=== PATIENT | female | born 1990 | race Caucasian/White ===

== ENCOUNTER 2016-09-26 20:42 | Inpatient (IN) | payer OTHER ==
[2016-09-26] MEDS ORDERED: CERVIDIL VG ONE (22:21)
[2016-09-26] MEDS ORDERED: STADOL IV PRN (22:21)
[2016-09-26] MEDS ORDERED: SUBLIMAZE IV PRN (22:22)
[2016-09-26] MEDS: LACTATED RINGERS 1,000 ML IV SCH (23:42)
[2016-09-26 23:53] LABS: Hematocrit 34.9 % (30.3-42.9); Hemoglobin 11.1 gm/dl (10.1-14.3); Mean Corpuscular HGB Conc 32 % (30-34); Mean Corpuscular Volume 76 fl (79-97); Platelet Count 166 K/mm3 (140-440); Red Blood Count 4.62 M/mm3 (3.65-5.03); Red Cell Distribution Width 18.4 % (13.2-15.2); White Blood Count 13.7 K/mm3 (4.5-11.0)
[2016-09-27 00:24] LABS: Mean Corpuscular Hemoglobin 24 pg (28-32)
[2016-09-27] MEDS: LACTATED RINGERS 1,000 ML IV SCH ×2 (04:48→17:23)
--- NOTE | 2016-09-27 11:11 | History and Physical Report ---
History of Present Illness Date of examination: 09/27/16 Date of admission: 09/26/16 20:42 Chief complaint: here to have my baby History of present illness: 26 YO now 40.6 weeks here for induction of labor. Had cervadil placed last night. care at [facility] since 13 weeks gestation. GBS Neg. Past History Past Medical History: no pertinent history Past Surgical History: no surgical history Family/Genetic History: none Social history: no significant social history - Obstetrical History Expected Date of Delivery: 09/21/16 Actual Gestation: 40 Week(s) 6 Day(s) : 1 Para: 0 Medications and Allergies Allergies Allergy/AdvReac Type Severity Reaction Status Date / Time No Known Allergies Allergy Unverified 09/26/16 21:50 Active Meds: Active Medications Butorphanol Tartrate (Stadol) 1 mg IV Q2H PRN PRN Reason: Labor Pain Fentanyl (Sublimaze) 100 mcg IV PRN PRN PRN Reason: Labor Pain Lactated Ringer's (Lactated Ringers) 1,000 mls @ 125 mls/hr IV DIRECT ANA LUISA Last Admin: 09/27/16 04:48 Dose: 125 mls/hr Review of Systems All systems: negative - Vital Signs Vital signs: Vital Signs Pulse Pulse Ox 95 H 99 09/26/16 21:50 09/26/16 21:50 Temp Pulse Resp BP Pulse Ox 97.8 F 81 18 111/62 97 09/27/16 07:53 09/27/16 10:26 09/27/16 07:53 09/27/16 10:26 09/27/16 09:00 - Physical Exam Breasts: Positive: deferred Cardiovascular: Regular rate Lungs: Positive: Clear to auscultation Abdomen: Positive: soft Genitourinary (Female): Positive: normal external genitalia Vulva: both: normal Vagina: Positive: normal moisture Uterus: Positive: enlarged Deep Tendon Reflex Grade: Normal +2 - Obstetrical FHR: category 1 Uterine Contraction Monitor Mode: External Cervical Dilatation: 1 Cervical Effacement Percentage: 80 station: -1 Uterine Contraction Pattern: Regular Uterine Contraction Intensity: Mild Results Result Diagrams: 09/26/16 22:24 Abnormal lab results 09/26/16 Range/Units 22:24 WBC 13.7 H (4.5-11.0) K/mm3 MCV 76 L (79-97) fl MCH 24 L (28-32) pg RDW 18.4 H (13.2-15.2) % All other labs normal. Assessment and Plan A:IUP @ 40.6 weeks P: Induction of labor
[2016-09-27] MEDS ORDERED: MINERAL OIL PO PRN (11:26)
[2016-09-27] MEDS ORDERED: BRETHINE SUB-Q PRN (11:26)
[2016-09-27] MEDS ORDERED: BRETHINE IVP PRN (11:26)
[2016-09-27] MEDS ORDERED: ePHEDrine SULFATE IV PRN (11:26)
[2016-09-27] MEDS ORDERED: PITOCin/NS 30 UNIT/500ML 30 UNITS/500 ML BAG IV SCH ×2 (12:00)
[2016-09-27] MEDS ORDERED: PITOCin/NS 20 UNIT/1000ML DRIP 20 UNITS/1,000 ML BAG IV SCH (12:00)
[2016-09-27 12:26] LABS: Hematocrit 36.2 % (30.3-42.9); Hemoglobin 11.6 gm/dl (10.1-14.3); Mean Corpuscular HGB Conc 32 % (30-34); Mean Corpuscular Volume 75 fl (79-97); Platelet Count 175 K/mm3 (140-440); Red Cell Distribution Width 18.6 % (13.2-15.2); White Blood Count 15.7 K/mm3 (4.5-11.0)
[2016-09-27 12:27] LABS: Mean Corpuscular Hemoglobin 24 pg (28-32)
[2016-09-27] MEDS ORDERED: CERVIDIL VG ONE (21:00)
[2016-09-28] MEDS: LACTATED RINGERS 1,000 ML IV SCH ×2 (10:30→14:05)
--- NOTE | 2016-09-28 10:46 | Event Note ---
Date: 09/28/16 S: Feeling contractions, cervadil fell out at 0730 O: VE 1.5/80/-1, cooks cervical ripening balloon placed. cervix softer, CAT I tracing A: Induction of labor Pitocin started Epidural when desired Expect
[2016-09-28] MEDS ORDERED: fentaNYL-BUPIV 2 MCG/ML-0.125% 200 MCG/100 ML BAG EPIDURAL ONE (14:41)
[2016-09-28] MEDS: ePHEDrine SULFATE IV PRN ×2 (15:13→16:11)
[2016-09-28] MEDS ORDERED: NARCAN 2 MG/2 ML IV PRN (15:14)
--- NOTE | 2016-09-28 15:14 | Anesthesia Consultation ---
Anesthesia Consult and Med Hx Date of service: 09/28/16 - Airway Anesthetic Teeth Evaluation: Good ROM Head & Neck: Adequate Mental/Hyoid Distance: Adequate Mallampati Class: Class II Intubation Access Assessment: Probably Good - Pulmonary Exam CTA: Yes - Cardiac Exam Cardiac Exam: RRR - Pre-Operative Health Status ASA Pre-Surgery Classification: ASA3 Proposed Anesthetic Plan: Epidural, Spinal - Pulmonary Hx Asthma: No COPD: No Hx Pneumonia: No - Cardiovascular System Hx Hypertension: No - Central Nervous System Hx Seizures: No Hx Psychiatric Problems: No - Endocrine Hx Renal Disease: No Hx End Stage Renal Disease: No Hx Hypothyroidism: No Hx Hyperthyroidism: No - Hematic Hx Anemia: No Hx Sickle Cell Disease: No - Other Systems Hx Alcohol Use: No Hx Obesity: Yes (BMI > 40) - Additional Comments Anesthesia Medical History Comments: +IUP
[2016-09-28] MEDS ORDERED: fentaNYL-BUPIV 2 MCG/ML-0.125% 200 MCG/100 ML BAG EPIDURAL SCH (16:00)
--- NOTE | 2016-09-28 16:32 | Event Note ---
Date: 09/28/16 O: /-1, arom clear fluid, small amt. IUPC and FSE placed. Pit at 6 cm, CAT I tracing A: Active labor @ 41.1 weeks P; Expect
[2016-09-28] MEDS ORDERED: NACL 0.9% 1000 ML 1,000 ML ONE (18:21)
[2016-09-28] MEDS ORDERED: NACL 0.9% 1000 ML 1,000 ML VG SCH (20:00)
--- NOTE | 2016-09-28 20:16 | Event Note ---
Date: 09/28/16 O: /-1, Pit at 14 mu, FHR Baseline increasing to 170's. CAT II tracing A: Active labor P: Dr. Naqvi updated regarding change in status. Will reevaluate at 2044
[2016-09-28] MEDS ORDERED: PEPCID IV SCH (20:26)
[2016-09-28] MEDS ORDERED: REGLAN IV SCH (20:26)
[2016-09-28] MEDS ORDERED: XYLOCAINE MPF 2% ONE ×2 (20:57→21:19)
[2016-09-28] MEDS ORDERED: PITOCin/NS 20 UNIT/1000ML DRIP 20 UNITS/1,000 ML BAG IV SCH ×2 (21:00→23:00)
[2016-09-28] MEDS ORDERED: LACTATED RINGERS 1,000 ML IV SCH (21:00)
[2016-09-28] MEDS ORDERED: BICITRA PO ONE (21:00)
[2016-09-28] MEDS ORDERED: ANCEF/STERILE WATER 2 GM/20 ML 2 GM/20 ML SYRINGE IV NR (21:00)
--- NOTE | 2016-09-28 21:01 | Anesthesia Day of Surgery ---
Anesthesia Day of Surgery - Day of Surgery Patient Examined: Yes Patient H&P Reviewed: Yes Patient is NPO: Yes
[2016-09-28] MEDS ORDERED: BENADRYL IV PRN (21:02)
[2016-09-28] MEDS ORDERED: MORPHINE IV PRN ×2 (21:02)
[2016-09-28] MEDS ORDERED: WATER FOR IRRIG STERILE IR ONE (21:16)
[2016-09-28] MEDS ORDERED: NACL 0.9% IR ONE (21:16)
[2016-09-28] MEDS ORDERED: ZOFRAN ONE (21:26)
[2016-09-28] MEDS ORDERED: ANCEF/STERILE WATER 2 GM/20 ML IV ONE (21:32)
[2016-09-28] MEDS ORDERED: MORPHINE ONE (21:37)
--- NOTE | 2016-09-28 22:11 | Operative Report ---
Operative Report Operative Report: Date of procedure: 09/28/2016 Pre-operative diagnosis: 1. Intrauterine at 41-0/7 weeks 2. Nonreassuring surveillance Post-operative diagnosis: Same Procedure name(s): Primary low transverse section Surgeon: Barak Naqvi MD Wheelabrator Operator: None Anesthesia: Epidural anesthesia by Dr. Byrne EBL: 700 mls Findings: A 3805 g male Apgars 8 at 1 minutes and 9 at 5 minutes; clear amniotic fluid. Normal uterus. Normal tubes and ovaries bilaterally. Procedure: After the patient was prepped and draped in usual sterile fashion, and after satisfactory level of epidural anesthesia was obtained, the skin knife was used to make a transverse skin incision. The incision was excised down to layer of the fascia, which was nicked in the midline and extended laterally using the Bovie cautery. The rectus muscles were dissected off the rectus fascia both superiorly and inferiorly. The rectus bellies in the midline, and the peritoneum was entered under direct visualization. The peritoneal incision was extended superiorly and inferiorly. A bladder flap was created and the bladder blade was then placed. The uterus was scored in a curvilinear linear fashion, entered in the midline revealing clear amniotic fluid. The infant's head was delivered onto the surgical field, and the oropharynx and nasopharynx were bulb suctioned. The rest of the infant's body was delivered, cord was doubly clamped and cut and the was handed to the waiting respiratory team. Cord blood was then obtained. The placenta was manually removed from the uterus, and the uterus removed from its normal anatomical position. After gentle uterine lavage, the incision was inspected and found to be without extensions. It was then closed in 2 layers using 0 Vicryl suture in a running interlocking fashion, the second layer imbricating the first. After good hemostasis was achieved, copious amounts or irrigation was performed, and the gutters were suctioned free of blood and blood clots. Tisseel sealant was sprayed across the uterine incision. The uterus was then returned to its normal anatomical position, and after excellent hemostasis assured, the peritoneum was reapproximated using 3-0 Vicryl suture in a running interlocking fashion, and then the rectus muscles were reapproximated using 3-0 Vicryl suture in a [id number] configuration. The fascia was then reapproximated using 0 Vicryl suture in running interlocking fashion. The subcutaneous layer was made hemostatic using Bovie cautery, the Tisseel sealant was sprayed across the fascial incision and the skin edges reapproximated using 4-0 Vicryl suture in a subcuticular fashion. Patient tolerated the procedure well was transported to recovery in stable condition.
[2016-09-28] MEDS ORDERED: PHENERGAN PR PRN (22:13)
[2016-09-28] MEDS ORDERED: SENOKOT PO PRN (22:13)
[2016-09-28] MEDS ORDERED: MYLICON PO PRN (22:13)
[2016-09-28] MEDS ORDERED: NARCAN 0.4 MG/1 ML IV PRN (22:13)
[2016-09-28] MEDS ORDERED: LANSINOH TP PRN (22:13)
[2016-09-28] MEDS ORDERED: ZOFRAN IV PRN (22:13)
[2016-09-28] MEDS ORDERED: NORCO 5/325 PO PRN (22:13)
[2016-09-28] MEDS ORDERED: MILK OF MAGNESIA PO PRN (22:13)
[2016-09-28] MEDS ORDERED: TYLENOL PO PRN (22:13)
[2016-09-28] MEDS ORDERED: TUCKS PAD TP PRN (22:13)
[2016-09-28] MEDS ORDERED: DEMEROL ONE (22:28)
[2016-09-28] MEDS: TORADOL IV PRN (22:42)
[2016-09-28] MEDS ORDERED: SODIUM CHLORIDE FLUSH SYRINGE 10 ML IV NR (23:00)
[2016-09-29] MEDS: D5LR 1,000 ML IV SCH ×2 (00:17→09:06)
[2016-09-29 00:59] LABS: Basophils % (Auto) 0.5 % (0.0-1.8); Eosinophils % (Auto) 0.3 % (0.0-4.3); Hematocrit 29.6 % (30.3-42.9); Hemoglobin 9.5 gm/dl (10.1-14.3); Mean Corpuscular HGB Conc 32 % (30-34); Mean Corpuscular Volume 76 fl (79-97); Platelet Count 146 K/mm3 (140-440); Red Blood Count 3.91 M/mm3 (3.65-5.03); Red Cell Distribution Width 18.8 % (13.2-15.2); White Blood Count 18.9 K/mm3 (4.5-11.0)
[2016-09-29 01:04] LABS: Mean Corpuscular Hemoglobin 24 pg (28-32)
[2016-09-29] MEDS: ANCEF/NS 1 GM/50 ML 1 GM/50 ML BAG IV SCH ×2 (02:53→12:10)
[2016-09-29] MEDS ORDERED: M-M-R II VACCINE SUB-Q ONE (06:00)
[2016-09-29] MEDS ORDERED: BOOSTRIX IM ONE (06:00)
--- NOTE | 2016-09-29 09:01 | Progress Note ---
Assessment and Plan O: WBC 18, temp 100.5 at 2300 hrs, FF @ U-2 A: POD #1 - stable P: Continue post op care HCTZ 50 mg pox 1 dose Subjective - Subjective Date of service: 09/29/16 Principal diagnosis: Primary Interval history: 26 YO now 40.6 weeks here for induction of labor. Had cervadil placed last night. care at [facility] since 13 weeks gestation. GBS Neg. Patient reports: appetite normal : doing well Objective - Vital Signs Latest vital signs: Vital Signs Temp Pulse Pulse Resp BP BP Pulse Ox 09/29/16 08:03 98.4 F 103 H 18 120/56 09/29/16 04:47 98.3 F 112 H 20 132/61 09/29/16 00:25 98.2 F 95 H 18 135/58 09/28/16 23:28 100.5 F H 09/28/16 23:20 108 H 14 122/69 94 09/28/16 23:15 106 H 14 116/83 93 09/28/16 23:10 104 H 18 124/70 94 09/28/16 23:05 104 H 17 117/76 94 09/28/16 23:00 100 H 18 140/79 95 09/28/16 22:55 106 H 21 140/79 96 09/28/16 22:50 104 H 17 126/80 94 09/28/16 22:45 91 H 17 131/71 94 09/28/16 22:42 19 09/28/16 22:40 99 H 14 144/79 96 09/28/16 22:35 104 H 17 146/81 97 09/28/16 22:30 102 H 26 H 145/92 97 09/28/16 22:25 101 H 19 128/82 99 09/28/16 22:21 98.4 F 09/28/16 22:20 100 H 20 132/65 99 09/28/16 22:19 103 H 19 98 09/28/16 20:42 113 H 143/66 09/28/16 19:47 95 H 98 09/28/16 19:42 91 H 98 09/28/16 19:41 90 122/57 09/28/16 19:37 93 H 99 09/28/16 19:32 89 98 07/16/17 19:27 102 H 98 0716/17 19:26 109 H 117/56 0716/17 19:22 95 H 98 0716/17 19:17 92 H 98 0716/17 19:12 102 H 98 0716/17 19:11 92 H 132/71 0716/17 19:10 99.5 F 15 0716/17 19:07 94 H 98 0716/17 19:02 110 H 98 0716/17 18:57 88 98 0716/17 18:56 88 137/74 0716/17 18:52 88 99 0716/17 18:47 89 98 0716/17 18:42 88 134/73 99 0716/17 18:37 87 98 0716/17 18:32 100 H 98 0716/17 18:27 93 H 99 0716/17 18:26 90 124/60 0716/17 18:22 88 99 0716/17 18:17 111 H 98 16/17 18:12 96 H 99 16/17 18:11 96 H 130/64 0716/17 18:07 91 H 98 0716/17 18:02 93 H 99 0716/17 17:57 105 H 123/57 99 0716/17 17:52 100 H 99 0716/17 17:47 101 H 99 0716/17 17:42 87 120/59 100 0716/17 17:37 87 98 0716/17 17:32 98 H 98 0716/17 17:27 90 113/63 98 0716/17 17:22 101 H 98 0716/17 17:17 86 100 0716/17 17:12 91 H 100 0716/17 17:11 96 H 135/70 0716/17 17:10 16 07/16/17 17:07 84 99 0716/17 17:02 94 H 99 0716/17 16:57 90 100 0716/17 16:56 94 H 140/66 0716/17 16:52 90 100 0716/17 16:47 101 H 100 0716/17 16:42 94 H 100 0716/17 16:41 88 131/65 0716/17 16:37 105 H 100 07/16/17 16:32 96 H 100 07/16/17 16:27 95 H 132/66 100 07/16/17 16:22 89 100 07/16/17 16:17 95 H 100 07/16/17 16:12 78 100 07/16/17 16:11 81 109/54 07/16/17 16:07 82 100 07/16/17 16:03 83 112/55 07/16/17 16:02 84 99 07/16/17 15:57 80 97 07/16/17 15:52 76 99 07/16/17 15:47 84 97 07/16/17 15:42 82 119/57 98 07/16/17 15:37 86 98 07/16/17 15:32 94 H 98 07/16/17 15:27 85 97 07/16/17 15:25 82 117/53 07/16/17 15:23 91 H 121/55 07/16/17 15:22 96 H 98 07/16/17 15:21 78 116/51 0716/17 15:19 79 84/48 0716/17 15:17 81 99 07/16/17 15:16 77 76/41 07/16/17 15:14 82 71/36 07/16/17 15:12 89 96 07/16/17 15:11 86 122/55 07/16/17 15:07 90 124/61 97 07/16/17 15:03 77 138/71 07/16/17 15:02 79 97 07/16/17 15:00 96 H 150/73 0716/17 14:57 101 H 145/69 98 07/16/17 14:52 82 96 07/16/17 14:48 103 H 123/59 0716/17 14:47 109 H 96 0716/17 14:31 80 98 07/16/17 14:28 79 94 07/16/17 14:26 81 97 07/16/17 14:22 84 94 07/16/17 14:21 81 97 07/16/17 14:16 79 97 07/16/17 14:11 80 97 07/16/17 14:09 96 H 94 07/16/17 14:06 85 97 07/16/17 14:01 101 H 96 16/17 13:56 91 H 96 /16/17 13:51 89 97 07/16/17 13:46 78 98 07/16/17 13:41 88 98 07/16/17 13:37 84 92 07/16/17 13:36 84 98 07/16/17 13:31 84 95 07/16/17 13:26 83 96 07/16/17 13:21 95 H 97 0716/17 13:20 91 H 93 0716/17 13:16 80 94 0716/17 13:14 90 93 0716/17 13:11 92 H 91 0716/17 13:08 84 92 0716/17 13:06 80 92 0716/17 13:02 91 H 92 0716/17 13:01 93 H 95 16/17 12:56 82 98 0716/17 12:55 80 90 0716/17 12:51 91 H 97 16/17 12:47 91 H 93 16/17 12:46 88 96 0716/17 12:41 96 H 96 16/17 12:40 94 H 94 16/17 12:36 81 95 0716/17 12:35 93 H 91 16/17 12:31 88 90 0716/17 12:28 89 92 07/16/17 12:26 84 94 07/16/17 12:21 85 96 07/16/17 12:16 94 H 98 16/17 12:15 98 H 89 0716/17 12:11 86 98 07/16/17 12:10 83 94 07/16/17 12:06 82 97 0716/17 12:01 85 97 07/16/17 11:57 92 H 93 0716/17 11:56 91 H 94 07/16/17 11:51 83 94 07/16/17 11:46 85 97 07/16/17 11:41 84 95 07/16/17 11:36 90 95 07/16/17 11:35 87 94 07/16/17 11:31 85 95 07/16/17 11:30 90 94 07/16/17 11:26 94 H 97 07/16/17 11:21 81 95 07/16/17 11:16 85 95 07/16/17 11:12 85 94 07/16/17 11:11 86 96 07/16/17 11:07 82 94 09/28/16 11:06 86 95 09/28/16 11:01 85 96 09/28/16 10:56 90 96 09/28/16 10:53 84 94 09/28/16 10:51 87 95 09/28/16 10:46 77 96 09/28/16 10:41 84 96 09/28/16 10:36 92 H 95 09/28/16 10:33 90 127/87 09/28/16 10:31 86 97 Intake and Output 09/28/16 09/29/16 09/29/16 22:59 06:59 14:59 Intake Total 1000 640 Output Total 600 625 Balance 400 15 Intake: IV 1000 400 Intake, Free Water 240 Output: Urine 600 625 Indwelling Catheter 500 300 Other: Total, Output Amount 500 300 Estimated Blood Loss 700 - Exam Breasts: Present: deferred Cardiovascular: Present: Regular rate Lungs: Present: Clear to auscultation Abdomen: Present: soft Vulva: both: normal Uterus: Present: fundal height below umbilicus Extremities: Present: edema Deep Tendon Reflex Grade: Normal +2 Incision: Present: dressed - Labs Labs: Abnormal lab results 09/29/16 Range/Units 00:28 WBC 18.9 H (4.5-11.0) K/mm3 Hgb 9.5 L (10.1-14.3) gm/dl Hct 29.6 L D (30.3-42.9) % MCV 76 L (79-97) fl MCH 24 L (28-32) pg RDW 18.8 H (13.2-15.2) % Lymph % (Auto) 11.4 L (13.4-35.0) % [place] # 1.0 H (0.0-0.8) K/mm3 Seg Neutrophils % 82.6 H (40.0-70.0) % Seg Neutrophils # 15.6 H (1.8-7.7) K/mm3
[2016-09-29] MEDS ORDERED: HCTZ PO ONE (10:00)
[2016-09-29 10:46] LABS: Hematocrit 26.5 % (30.3-42.9); Hemoglobin 8.5 gm/dl (10.1-14.3)
[2016-09-29] MEDS: TORADOL IV PRN (14:27)
--- NOTE | 2016-09-29 14:35 | Progress Note ---
Subjective Date of service: 09/29/16 Principal diagnosis: Primary Interval history: 1st POD after primary Patient is in the bed, comfortable. Pain is well controlled with pain meds. Ambulated well. No residual neurological deficit. No pruritus. No anesthesia complications Objective - Constitutional Vitals: Vital Signs - 12hr 09/29/16 09/29/16 09/29/16 04:47 08:03 12:30 Temperature 98.3 F 98.4 F 98.7 F Pulse Rate [ 112 H 103 H 101 H Right From Monitor] Respiratory 20 18 16 Rate Blood Pressure 132/61 120/56 122/66 [Right Arm] 09/29/16 14:27 Temperature Pulse Rate [ Right From Monitor] Respiratory 20 Rate Blood Pressure [Right Arm] - Labs CBC & Chem 7: 09/29/16 10:13 Labs: Abnormal lab results 09/29/16 09/29/16 Range/Units 00:28 10:13 WBC 18.9 H (4.5-11.0) K/mm3 Hgb 9.5 L 8.5 L (10.1-14.3) gm/dl Hct 29.6 L D 26.5 L (30.3-42.9) % MCV 76 L (79-97) fl MCH 24 L (28-32) pg RDW 18.8 H (13.2-15.2) % Lymph % (Auto) 11.4 L (13.4-35.0) % [place] # 1.0 H (0.0-0.8) K/mm3 Seg Neutrophils % 82.6 H (40.0-70.0) % Seg Neutrophils # 15.6 H (1.8-7.7) K/mm3
[2016-09-30] MEDS: TORADOL IV PRN (00:02)
[2016-09-30] MEDS: PERCOCET 5/325 PO PRN ×3 (00:02→16:20)
[2016-09-30] MEDS ORDERED: INFED IM ONE (07:07)
[2016-09-30 08:13] LABS: Basophils % (Auto) 0.4 % (0.0-1.8); Hematocrit 24.9 % (30.3-42.9); Hemoglobin 8.3 gm/dl (10.1-14.3); Mean Corpuscular HGB Conc 33 % (30-34); Mean Corpuscular Volume 75 fl (79-97); Platelet Count 130 K/mm3 (140-440); Red Blood Count 3.33 M/mm3 (3.65-5.03); Red Cell Distribution Width 18.9 % (13.2-15.2); White Blood Count 10.8 K/mm3 (4.5-11.0)
[2016-09-30 08:18] LABS: Mean Corpuscular Hemoglobin 25 pg (28-32)
--- NOTE | 2016-09-30 09:26 | Progress Note ---
Assessment and Plan A: POD 2 Asymptomatic anemia WBCs trending downward P: Routine post op care Per patient's request, DC tomorrow Encourage increased ambulation Encouraged continued use of ibuprofen for pain management Infed 100mg IM today Subjective - Subjective Date of service: 09/30/16 Principal diagnosis: POD2 Interval history: 26 YO @ 40.6 weeks presented for induction of labor. Had cervadil, AROM and pitocin. care at [facility] since 13 weeks gestation. GBS Neg. Pt developed tachycardia and had primary LTCS for non reassuring status on 09/28 @ ~2200. WBC yesterday>18 today ~10. Hgb 8.3 today down from 11.6 on admission. Patient reports: appetite normal, voiding normally, flatus, pain poorly controlled, ambulating normally : doing well Objective - Vital Signs Latest vital signs: Vital Signs Temp Pulse Resp BP 09/30/16 08:56 20 09/30/16 08:49 98.2 F 82 18 122/76 09/30/16 01:36 98.6 F 107 H 20 132/83 09/29/16 21:18 98.2 F 103 H 18 146/88 09/29/16 16:00 98.8 F 98 H 18 132/60 09/29/16 14:27 20 09/29/16 12:30 98.7 F 101 H 16 122/66 Intake and Output 09/29/16 09/30/16 09/30/16 22:59 06:59 14:59 Intake Total 480 Output Total 400 Balance 80 Intake: Oral 480 Output: Urine 400 Void 400 Other: Total, Intake Amount 480 Total, Output Amount 400 # Voids Void 1 1 - Exam Cardiovascular: Present: Regular rate Lungs: Present: Normal air movement Vulva: both: normal (scant lochia) Uterus: Present: fundal height below umbilicus Deep Tendon Reflex Grade: Normal +2 Incision: Present: normal, dry, intact - Labs Labs: Abnormal lab results 09/29/16 09/30/16 Range/Units 10:13 07:16 RBC 3.33 L (3.65-5.03) M/mm3 Hgb 8.5 L 8.3 L (10.1-14.3) gm/dl Hct 26.5 L 24.9 L (30.3-42.9) % MCV 75 L (79-97) fl MCH 25 L (28-32) pg RDW 18.9 H (13.2-15.2) % Plt Count 130 L (140-440) K/mm3 [place] % (Auto) 7.4 H (0.0-7.3) % - Allied health notes Allied health notes reviewed: nursing
--- NOTE | 2016-09-30 09:33 | Discharge Summary ---
Providers - Providers Date of Admission: 09/26/16 20:42 Date of discharge: 10/01/16 Attending physician: JOSE BURGOS MD Primary care physician: JOSE BURGOS MD Hospitalization Reason for admission: induction of labor Delivery: Procedure: primary low transverse Incision: normal, dry, intact Other procedures: none complications: none Discharge diagnosis: IUP at term delivered baby: male Hospital course: IOL for postdated resulting in primary LTCS Condition at discharge: Good Disposition: DC-01 TO HOME OR SELFCARE Plan - Discharge Medications Prescriptions: Ferrous Sulfate [Feosol 325 MG tab] 325 mg PO BID #60 tablet HYDROcodone/APAP 5-325 [[place] 5/325] 1 each PO Q6HR PRN #30 tablet PRN Reason: Pain Ibuprofen [Motrin] 800 mg PO Q8HR PRN #30 tablet PRN Reason: Moder Pain Unrelieved By Shepherd Vit W-Ca,Fe,FA(<1 mg) [ Vitamins] 1 each PO DAILY #30 tablet - Provider Discharge Summary Activity: routine, no sex for 6 weeks, no heavy lifting 4 weeks, no strenuous exercise Diet: routine Instructions: routine Additional instructions: [] Smoking cessation referral if applicable(refer to patient education folder for contact #) [] Refer to [facility]'s [facility] Booklet Call your doctor immediately for: * Fever > 100.5 * Heavy vaginal bleeding ( >1 pad per hour) * Severe persistent headache * Shortness of breath * Reddened, hot, painful area to leg or breast * Drainage or odor from incision. * Keep incision clean and dry at all times and follow doctor's instructions regarding bathing/showering - Follow up plan Follow up: [facility] [Provider Group] - 7 Days
[2016-09-30] MEDS: FEOSOL PO SCH (12:02)
[2016-09-30] MEDS: PRENATAL VITAMIN PO SCH (12:02)
[2016-09-30] MEDS: MOTRIN PO PRN (14:19)
[2016-10-01] MEDS: MOTRIN PO PRN ×2 (00:05→06:12)
[2016-10-01] MEDS ORDERED: BOOSTRIX IM ONE (06:00)
[2016-10-01] MEDS: FEOSOL PO SCH (10:32)
[2016-10-01] MEDS: PRENATAL VITAMIN PO SCH (10:33)
[2016-10-01 15:31] VITALS: BP 134/73
== END 2016-10-01 18:25 | disposition home or self-care (01) | DRG 766 ==
LOC: LD 20:42 → OB 09-29
PROVIDERS: ADMIT Obstetrics & Gynecology; ATTEND Obstetrics & Gynecology
PROC: 10D00Z1 Extraction of Products of Conception, Low, Open Approach (ICD-10-PCS; principal; 2016-09-28)
DX: O76 Abnormality in fetal heart rate and rhythm complicating labor and delivery (principal); O99.214 Obesity complicating childbirth; Z3A.40 40 weeks gestation of pregnancy; Z37.0 Single live birth; O90.81 Anemia of the puerperium; D64.9 Anemia, unspecified
CPT/HCPCS: 36415; 59200; 85014; 85018; 85025; 85027; 86850; 86900; 86901; 90471; 90715; 99211; A6250; C9250; G0463; J0595; J0690; J1750; J1885; J2175; J2270; J2405; J2590; J2765; J3010; J7030; J7120; J7121